=== PATIENT | male | born 1950 | race Two or more races ===

== ENCOUNTER 2021-04-30 04:30 | Inpatient (IN) | payer MEDICARE, MEDICAID ==
[~2021-04-30] VITALS: Ht 170.2 cm; Wt 63.5 kg
[2021-04-30] MEDS ORDERED: SODIUM CHLORIDE 0.9% 250 ML IV ONE (06:30)
[2021-04-30 06:40] LABS: Basophils # (auto) 0 10 ^3/uL (0-0.2); Basophils % (auto) 0.1 % (0.0-2.0); Eosinophils # (auto) 0 10 ^3/uL (0-0.8); Eosinophils % (auto) 0.1 % (0.0-7.0); Hematocrit 28.8 % (41.0-53.0); Hemoglobin 9.2 g/dL (13.5-17.5); Lymphocytes # (auto) 0.3 10 ^3/uL (0.4-5.4); Lymphocytes % (auto) 1.3 % (10.0-50.0); Mean Corpuscular Hemoglobin 31.5 pg (28.0-32.0); Mean Corpuscular Volume 98.5 fL (80.0-100.0); Monocytes # (auto) 0.4 10 ^3/uL (0-1.3); Monocytes % (auto) 2.1 % (0.0-12.0); Neutrophils # (auto) 19.2 10 ^3/uL (1.6-8.6); Neutrophils % (auto) 96.4 % (37.0-80.0); Nucleated Red Blood Cells % 0.1 %; Red Blood Cells 2.93 10^6/uL (4.5-5.90); White Blood Cell 19.9 10^3/uL (4.4-10.8)
[2021-04-30 06:47] LABS: INR 1.26 (0.9-1.15); Partial Thromboplastin Time 39.2 sec (23.6-33.0)
[2021-04-30 06:50] LABS: Albumin 2.7 g/dL (3.4-5.0); Calcium 8.8 mg/dL (8.5-10.1); Magnesium 3.4 mg/dL (1.6-2.6); Potassium 4.2 mmol/L (3.5-5.1)
[2021-04-30 07:05] LABS: BUN/Creatinine Ratio 6.7; Total Protein 7.4 g/dL (6.4-8.2)
[2021-04-30] MEDS ORDERED: PIPERACILLIN-TAZOB 3.375GM 100 ML IV ONE (07:45)
[2021-04-30] MEDS ORDERED: FUROSEMIDE 40 MG/4 ML VIAL IV ONE (07:45)
[2021-04-30] MEDS ORDERED: NOREPINEPHRINE 8 MG/250ML KIT 250 ML IV ONE (08:09)
[2021-04-30] MEDS: NOREPINEPHRINE 8 MG/250ML KIT 250 ML IV SCH ×3 (08:45→18:10)
[2021-04-30] MEDS ORDERED: PIPERACILLIN-TAZOB 2.25GM 50 ML IV SCH (21:05)
[2021-04-30] MEDS ORDERED: VASOPRESSIN 20 UNIT/ML ONE ×2 (21:06→21:14)
[2021-04-30] MEDS: VASOPRESSIN 50 UNITS in D5W 5% 247.5 ML IV SCH (21:37)
[2021-04-30] MEDS ORDERED: DEXTROSE (50%) 50ML SYRG IV ONE (23:15)
[2021-04-30] MEDS: CLINDAMYCIN 600MG IV 50 ML IV SCH (23:23)
[2021-04-30] MEDS ORDERED: D5W/SOD CHL 0.45% 1,000 ML IV ONE (23:45)
[2021-05-01] MEDS ORDERED: DEXTROSE (50%) 50ML SYRG IV ONE ×3 (02:00→21:30)
[2021-05-01] MEDS ORDERED: ACCU-CHEK COMFORT CURVE STRIP VI ONE (02:00)
[2021-05-01] MEDS ORDERED: PIPERACILLIN-TAZOB 2.25GM 50 ML IV SCH (06:00)
[2021-05-01] MEDS: CLINDAMYCIN 600MG IV 50 ML IV SCH (06:00)
[2021-05-01] MEDS ORDERED: D5W/SOD CHLO 0.9% 1,000 ML IV ONE (07:00)
[2021-05-01] MEDS ORDERED: PIPERACILLIN-TAZOB 3.375GM 100 ML IV ONE (10:00)
[2021-05-01] MEDS ORDERED: SODIUM CHL 0.9% 1000 ML BAG XX ONE (11:00)
[2021-05-01] MEDS ORDERED: VANCOMYCIN 1GM/250ML 250 ML IV ONE (11:15)
[2021-05-01] MEDS ORDERED: VANCOMYCIN PER PHARMACY 0 MG IV SCH (11:15)
[2021-05-01] MEDS ORDERED: ALBUMIN 25% 100 ML IV ONE ×3 (14:00→14:31)
[2021-05-01] MEDS ORDERED: ALBUMIN 25% 0 ML IV ONE (14:30)
[2021-05-01] MEDS ORDERED: VASOPRESSIN 20 UNIT/ML ONE ×2 (19:58→20:14)
[2021-05-01] MEDS: PIPERACILLIN-TAZOB 2.25GM 50 ML IV SCH (20:32)
[2021-05-01] MEDS ORDERED: EPOETIN ALFA-EPBX 4,000 UNIT/ML VIAL SC ONE (21:00)
[2021-05-01] MEDS: NOREPINEPHRINE 8 MG/250ML KIT 250 ML IV SCH (21:04)
[2021-05-01] MEDS ORDERED: DEXTROSE 50% SYRINGE 50 ML IV ONE (21:24)
[2021-05-01] MEDS ORDERED: DEXTROSE (50%) 50ML SYRG IV PRN (22:00)
[2021-05-01] MEDS ORDERED: ONDANSETRON HCL 4 MG/2 ML VIAL IV PRN (22:00)
[2021-05-01] MEDS: FAMOTIDINE (10MG/ML) 2ML VL IV SCH (22:45)
[2021-05-01] MEDS ORDERED: HYDROcodone-ACET 5/325MG TAB PO PRN (23:30)
[2021-05-01] MEDS ORDERED: NITROGLYCERIN 0.4 MG SL TAB SL PRN (23:30)
[2021-05-01] MEDS ORDERED: DOCUSATE SOD 100 MG CAP PO PRN (23:30)
[2021-05-01] MEDS ORDERED: MORPHINE SULFATE INJECTION 2 MG/ML SYRG IV PRN (23:30)
[2021-05-01] MEDS ORDERED: ACETAMINOPHEN 325 MG TAB PO PRN (23:30)
[2021-05-02] MEDS: ACCU-CHEK COMFORT CURVE STRIP VI SCH ×6 (00:12→20:00)
[2021-05-02] MEDS: VASOPRESSIN 50 UNITS in D5W 5% 247.5 ML IV SCH ×2 (00:13→17:16)
[2021-05-02] MEDS: PIPERACILLIN-TAZOB 2.25GM 50 ML IV SCH ×3 (02:40→18:15)
[2021-05-02] MEDS: InsuLIN REG 1unit/0.01ml Soln (100units/ml) SC SCH ×6 (04:00→22:19)
[2021-05-02 05:41] LABS: Albumin 2.5 g/dL (3.4-5.0); Calcium 9.2 mg/dL (8.5-10.1); Potassium 4.5 mmol/L (3.5-5.1)
[2021-05-02] MEDS: SODIUM CHLOR 0.9% PF (SALINE LOCK) 10ML VIAL/SYR IV SCH ×3 (05:42→22:01)
[2021-05-02 05:49] LABS: BUN/Creatinine Ratio 6.5; Bilirubin, Total 1.2 mg/dL (0.2-1.0)
[2021-05-02 06:21] LABS: Lymphocytes # (auto) 0.7 10 ^3/uL (0.4-5.4); Neutrophils # (auto) 17.9 10 ^3/uL (1.6-8.6)
[2021-05-02 06:27] LABS: Basophils # (auto) 0 10 ^3/uL (0-0.2); Basophils % (auto) 0.2 % (0.0-2.0); Eosinophils # (auto) 0.1 10 ^3/uL (0-0.8); Eosinophils % (auto) 0.7 % (0.0-7.0); Hematocrit 24.9 % (41.0-53.0); Hemoglobin 8.1 g/dL (13.5-17.5); Lymphocytes % (auto) 3.7 % (10.0-50.0); Mean Corpuscular Hemoglobin 31.8 pg (28.0-32.0); Mean Corpuscular Hgb Conc. 32.5 g/dL (32.0-36.0); Mean Corpuscular Volume 97.8 fL (80.0-100.0); Monocytes # (auto) 0.6 10 ^3/uL (0-1.3); Monocytes % (auto) 3.3 % (0.0-12.0); Neutrophils % (auto) 92.1 % (37.0-80.0); Red Blood Cells 2.55 10^6/uL (4.5-5.90); Red Cell Distribution Width 14.7 % (11.8-14.3); White Blood Cell 19.4 10^3/uL (4.4-10.8)
[2021-05-02] MEDS ORDERED: NOREPINEPHRINE BITARTRATE 16 MG in SODIUM CHL 0.9% 234 ML IV SCH (07:30)
[2021-05-02] MEDS ORDERED: LACTULOSE 20Gm/30ML SOLN PO PRN (08:00)
[2021-05-02] MEDS: FAMOTIDINE (10MG/ML) 2ML VL IV SCH (08:27)
[2021-05-02] MEDS: ASCORBIC ACID 500 MG TAB PO SCH ×2 (08:29→22:00)
[2021-05-02] MEDS: B-COMPLEX W/ C & FOLIC ACID(NEPHROVITE TAB) PO SCH (08:29)
[2021-05-02] MEDS: ZINC SULFATE 220mg CAP or TAB PO SCH (08:29)
[2021-05-02] MEDS: SEVELAMER 800 MG TAB PO SCH ×3 (08:47→18:40)
[2021-05-02] MEDS ORDERED: HEPARIN SODIUM (PORCINE) 5000 UNITS/ML 1ML VIAL SC SCH (10:00)
[2021-05-02] MEDS ORDERED: PHENYLEPHRINE INJ 40 MG in SODIUM CHL 0.9% 246 ML IV SCH (14:30)
[2021-05-02] MEDS ORDERED: DEXTROSE 10% 1,000 ML IV ONE (14:45)
[2021-05-02] MEDS: PHENYLEPHRINE INJ 80 MG in SODIUM CHL 0.9% 242 ML IV SCH (14:55)
[2021-05-02] MEDS ORDERED: HEPARIN SODIUM (PORCINE) 5000 UNITS/ML 1ML VIAL IV ONE (15:00)
[2021-05-02] MEDS ORDERED: VANCOMYCIN 1GM/250ML 250 ML IV ONE (16:00)
[2021-05-02] MEDS: NOREPINEPHRINE BITARTRATE 32 MG in SODIUM CHL 0.9% 218 ML IV SCH (16:35)
[2021-05-02 16:58] LABS: Basophils # (auto) 0 10 ^3/uL (0-0.2); Basophils % (auto) 0.2 % (0.0-2.0); Eosinophils # (auto) 0 10 ^3/uL (0-0.8); Eosinophils % (auto) 0.1 % (0.0-7.0); Hematocrit 24.7 % (41.0-53.0); Hemoglobin 7.9 g/dL (13.5-17.5); Lymphocytes # (auto) 0.2 10 ^3/uL (0.4-5.4); Mean Corpuscular Hemoglobin 31.3 pg (28.0-32.0); Mean Corpuscular Hgb Conc. 31.8 g/dL (32.0-36.0); Mean Corpuscular Volume 98.5 fL (80.0-100.0); Monocytes # (auto) 0.3 10 ^3/uL (0-1.3); Monocytes % (auto) 1.5 % (0.0-12.0); Neutrophils # (auto) 20.9 10 ^3/uL (1.6-8.6); Neutrophils % (auto) 97.2 % (37.0-80.0); Red Blood Cells 2.51 10^6/uL (4.5-5.90); Red Cell Distribution Width 14.7 % (11.8-14.3); White Blood Cell 21.5 10^3/uL (4.4-10.8)
[2021-05-02] MEDS: HEPARIN DRIP/D5W 100UNITS/ML 250 ML IV SCH (17:13)
[2021-05-02 17:14] LABS: Lactic Acid w/Reflex 4.1 mmol/L (0.4-2.0)
[2021-05-02] MEDS: DOPamine 1600MCG/ML D5W 250 ML IV SCH (18:08)
[2021-05-02] MEDS ORDERED: LIDOCAINE 50MG/5ML INJ 5ML SYRINGE IV ONE ×2 (21:15)
[2021-05-02 23:44] LABS: INR 1.76 (0.9-1.15); Partial Thromboplastin Time 58.9 sec (23.6-33.0)
[2021-05-03] MEDS: ACETAMINOPHEN 650 MG RECT SUPP PR PRN (01:12)
[2021-05-03 01:58] VITALS: BP 85/21
[2021-05-03] MEDS: InsuLIN REG 1unit/0.01ml Soln (100units/ml) SC SCH ×6 (02:14→20:00)
[2021-05-03] MEDS: DOPamine 1600MCG/ML D5W 250 ML IV SCH (02:52)
[2021-05-03] MEDS: PIPERACILLIN-TAZOB 2.25GM 50 ML IV SCH ×2 (03:05→10:08)
[2021-05-03] MEDS: VASOPRESSIN 50 UNITS in D5W 5% 247.5 ML IV SCH (03:47)
[2021-05-03] MEDS: PHENYLEPHRINE INJ 80 MG in SODIUM CHL 0.9% 242 ML IV SCH (04:15)
[2021-05-03] MEDS: ACCU-CHEK COMFORT CURVE STRIP VI SCH ×6 (04:20→21:04)
[2021-05-03] MEDS ORDERED: ROCURONIUM 10MG/ML 10ML VIAL IV ONE (05:15)
[2021-05-03] MEDS ORDERED: KETAMINE 50mg/ML 10ml Vial (500mg/10ml) IV ONE (05:15)
[2021-05-03 05:19] VITALS: BP 157/14
[2021-05-03] MEDS: PROPOFOL 100 ML IV SCH (05:20)
[2021-05-03] MEDS: SODIUM CHLOR 0.9% PF (SALINE LOCK) 10ML VIAL/SYR IV SCH ×3 (07:03→22:48)
[2021-05-03 07:45] VITALS: BP 99/12
[2021-05-03] MEDS: SEVELAMER 800 MG TAB PO SCH ×3 (08:00→17:12)
[2021-05-03 08:10] LABS: Basophils # (auto) 0 10 ^3/uL (0-0.2); Eosinophils # (auto) 0 10 ^3/uL (0-0.8); Hemoglobin 8.2 g/dL (13.5-17.5); Lymphocytes # (auto) 0.8 10 ^3/uL (0.4-5.4); Nucleated Red Blood Cells % 0.1 %; Red Blood Cells 2.64 10^6/uL (4.5-5.90)
[2021-05-03 08:12] LABS: Basophils % (auto) 0.1 % (0.0-2.0); Hematocrit 26.4 % (41.0-53.0); Lymphocytes % (auto) 3.7 % (10.0-50.0); Mean Corpuscular Hemoglobin 31.1 pg (28.0-32.0); Mean Corpuscular Volume 100.2 fL (80.0-100.0); Monocytes # (auto) 0.7 10 ^3/uL (0-1.3); Monocytes % (auto) 3.4 % (0.0-12.0); Neutrophils # (auto) 20.1 10 ^3/uL (1.6-8.6); Neutrophils % (auto) 92.8 % (37.0-80.0); Red Cell Distribution Width 15.3 % (11.8-14.3); White Blood Cell 21.7 10^3/uL (4.4-10.8)
[2021-05-03] MEDS: ZINC SULFATE 220mg CAP or TAB PO SCH (08:20)
[2021-05-03] MEDS: ASCORBIC ACID 500 MG TAB PO SCH ×2 (08:20→17:12)
[2021-05-03] MEDS: B-COMPLEX W/ C & FOLIC ACID(NEPHROVITE TAB) PO SCH (08:20)
[2021-05-03 08:38] LABS: INR 2.39 (0.9-1.15)
[2021-05-03 08:45] LABS: Albumin 2.3 g/dL (3.4-5.0); BUN/Creatinine Ratio 7.2; Bilirubin, Total 2.1 mg/dL (0.2-1.0); Calcium 8.8 mg/dL (8.5-10.1); Total Protein 6.2 g/dL (6.4-8.2)
[2021-05-03 08:49] LABS: Partial Thromboplastin Time 101.2 sec (23.6-33.0)
[2021-05-03 09:55] VITALS: BP 114/14
[2021-05-03] MEDS ORDERED: MEROPENEM 500MG IVPB 50 ML IV SCH (10:00)
[2021-05-03 13:10] VITALS: BP 158/18
[2021-05-03 17:17] LABS: INR 2.75 (0.9-1.15)
[2021-05-03 17:24] LABS: Partial Thromboplastin Time 80.3 sec (23.6-33.0)
[2021-05-03] MEDS ORDERED: MEROPENEM 500MG IVPB 50 ML IV ONE (17:30)
[2021-05-03 18:42] VITALS: BP 160/12
[2021-05-03] MEDS: HEPARIN DRIP/D5W 100UNITS/ML 250 ML IV SCH (21:05)
[2021-05-03] MEDS: NOREPINEPHRINE BITARTRATE 32 MG in SODIUM CHL 0.9% 218 ML IV SCH (22:47)
[2021-05-03] MEDS: D5W 5% 1,000 ML IV SCH (22:48)
[2021-05-03 23:57] LABS: INR 2.69 (0.9-1.15)
[2021-05-04] MEDS: ACCU-CHEK COMFORT CURVE STRIP VI SCH ×4 (00:08→12:00)
[2021-05-04 02:32] VITALS: BP 114/10
[2021-05-04] MEDS: ACETAMINOPHEN 650 MG RECT SUPP PR PRN (03:40)
[2021-05-04] MEDS: InsuLIN REG 1unit/0.01ml Soln (100units/ml) SC SCH ×4 (04:35→12:00)
[2021-05-04] MEDS: SODIUM CHLOR 0.9% PF (SALINE LOCK) 10ML VIAL/SYR IV SCH (05:56)
[2021-05-04] MEDS: PROPOFOL 100 ML IV SCH (05:56)
[2021-05-04 06:40] VITALS: BP 134/13
[2021-05-04 07:57] LABS: Hematocrit 27.8 % (41.0-53.0); Mean Corpuscular Hemoglobin 31.9 pg (28.0-32.0); Mean Corpuscular Hgb Conc. 32.3 g/dL (32.0-36.0); Mean Corpuscular Volume 98.6 fL (80.0-100.0); Red Blood Cells 2.82 10^6/uL (4.5-5.90); Red Cell Distribution Width 15.3 % (11.8-14.3); White Blood Cell 12.3 10^3/uL (4.4-10.8)
[2021-05-04] MEDS: SEVELAMER 800 MG TAB PO SCH ×2 (08:00→12:00)
[2021-05-04 08:10] LABS: Basophils % (manual) 0 (0.0-2.0); Blast Cells 0; Eosinophils % (manual) 0 (0-7); Metamyelocytes % 0; Promyelocytes % 0; Reactive Lymphocytes 0
[2021-05-04 08:19] LABS: BUN/Creatinine Ratio 8.9
[2021-05-04 08:47] LABS: Potassium 6.1 mmol/L (3.5-5.1)
[2021-05-04] MEDS: ASCORBIC ACID 500 MG TAB PO SCH (08:47)
[2021-05-04] MEDS: B-COMPLEX W/ C & FOLIC ACID(NEPHROVITE TAB) PO SCH (08:47)
[2021-05-04] MEDS: ZINC SULFATE 220mg CAP or TAB PO SCH (08:47)
[2021-05-04 08:50] VITALS: BP 148/16
[2021-05-04 09:51] LABS: INR 2.29 (0.9-1.15); Partial Thromboplastin Time 66.4 sec (23.6-33.0)
[2021-05-04 10:00] LABS: Band Neutrophils % (manual) 9; Lymphocytes % (manual) 10 (10.0-50.0); Monocytes % (manual) 4 (0-12); Myelocytes % 1
[2021-05-04] MEDS ORDERED: FAMOTIDINE (10MG/ML) 2ML VL IV SCH (10:00)
[2021-05-04] MEDS ORDERED: MEROPENEM 500MG IVPB 50 ML IV SCH (10:00)
[2021-05-04] MEDS: D5W 5% 1,000 ML IV SCH (10:19)
[2021-05-04] MEDS: DOPamine 1600MCG/ML D5W 250 ML IV SCH (10:19)
[2021-05-04] MEDS ORDERED: MORPHINE SULFATE INJECTION 2 MG/ML SYRG IV PRN (11:45)
[2021-05-04] MEDS ORDERED: LORazepam 2MG/ML-1ML VIAL IV PRN (11:45)
[2021-05-04 13:15] VITALS: BP 126/29
== END 2021-05-04 13:38 | DRG 871 ==
LOC: ER 04:30 → EDBD 04:30 → TELE 05-01 23:32
PROVIDERS: ADMIT Nurse Practitioner Family; ATTEND Internal Medicine Pulmonary Disease
PROC: 5A1D70Z Performance of Urinary Filtration, Intermittent, Less than 6 Hours Per Day (ICD-10-PCS; 2021-05-01)
PROC: 06HN33Z Insertion of Infusion Device into Left Femoral Vein, Percutaneous Approach (ICD-10-PCS; 2021-05-02)
PROC: B54CZZA Ultrasonography of Left Lower Extremity Veins, Guidance (ICD-10-PCS; 2021-05-02)
PROC: 5A1935Z Respiratory Ventilation, Less than 24 Consecutive Hours (ICD-10-PCS; principal; 2021-05-03)
PROC: 0BH17EZ Insertion of Endotracheal Airway into Trachea, Via Natural or Artificial Opening (ICD-10-PCS; 2021-05-03)
PROC: 5A09357 Assistance with Respiratory Ventilation, Less than 24 Consecutive Hours, Continuous Positive Airway Pressure (ICD-10-PCS; 2021-05-03)
DX: A41.9 Sepsis, unspecified organism (principal); R65.21 Severe sepsis with septic shock; N18.6 End stage renal disease; J96.01 Acute respiratory failure with hypoxia; I13.2 Hypertensive heart and chronic kidney disease with heart failure and with stage 5 chronic kidney disease, or end stage renal disease; Z66 Do not resuscitate; E11.51 Type 2 diabetes mellitus with diabetic peripheral angiopathy without gangrene; Z20.822 Contact with and (suspected) exposure to COVID-19; D63.8 Anemia in other chronic diseases classified elsewhere; Z99.2 Dependence on renal dialysis; I50.9 Heart failure, unspecified; R20.2 Paresthesia of skin; E11.649 Type 2 diabetes mellitus with hypoglycemia without coma; E11.22 Type 2 diabetes mellitus with diabetic chronic kidney disease; Z51.5 Encounter for palliative care; Z80.0 Family history of malignant neoplasm of digestive organs; Z95.0 Presence of cardiac pacemaker; Z89.512 Acquired absence of left leg below knee
CPT/HCPCS: 36415; 36600; 71045; 76937; 80048; 80053; 80061; 80202; 82550; 82805; 82962; 83036; 83605; 83735; 83880; 84484; 85007; 85025; 85027; 85610; 85730; 87040; 87070; 87077; 87186; 87205; 87340; 87426; 90935; 93005; 93306; 94002; 94003; 94660; 96361; 96365; 96366; 96367; 96375; 96376; 99291; G0378; J1815; J2185; J2543; J2704; J3490; J7060